=== PATIENT | female | born 1990 | race Two or more races ===

== ENCOUNTER 2019-09-25 13:48 | Emergency (ER) | payer OTHER ==
[2019-09-25 14:00] VITALS: BP 94/54; PULSE 79; TEMP 98.5; BMI 25.4
[2019-09-25] MEDS ORDERED: ACETAMINOPHEN 500 MG TABLET (FP) PO ONE (14:22)
[2019-09-25] MEDS ORDERED: LIDOCAINE VISCOUS 2% ORAL/TOP 20 ML UNIT-DOSE CUP MM ONE (14:22)
[2019-09-25] MEDS ORDERED: MAG HYDROX/AL HYDROX/SIMETH 30 ML UNIT-DOSE CUP PO ONE (14:22)
[2019-09-25 14:24] LABS: HCG,QUALITATIVE URINE Negative
--- NOTE | 2019-09-25 14:29 | PDOC ---
Documentation entered by Ana Bray SCRIBE, acting as scribe for Shari Flynn DO. Shari Flynn DO: This documentation has been prepared by the goldenibalma, Ana Bray SCRIBE, under my direction and personally reviewed by me in its entirety. I confirm that the documentation accurately reflects all work, treatment, procedures, and medical decision making performed by me. History of Present Illness - General Chief Complaint: Pain Stated Complaint: ABDOMINAL PAIN WAS DIAGNOSISED WITH UTI YESTERDA Time Seen by Provider: 09/25/19 13:52 History Source: Patient Exam Limitations: No Limitations - History of Present Illness Initial Comments: 09/25/19 14:20 The patient is a 28-year-old female with no significant past medical history who presents to the emergency department with abdominal pain. The patient presents with right upper quadrant pain radiating to the right shoulder, associated with vomiting and increased belching. The patient reports episodes of nonbloody, nonbilious vomiting and Friday, the last episode was yesterday. The patient reports her last bowel movement was , which was usual for the patient to have a bowel movement every other day. The patient reports she is passing flatulence. The patient reports following up at an Urgent care yesterday for the symptoms, the patients UC was significant for a UTI, the patient was discharged on Bactrim and Pepcid (for abdominal symptoms) and was instructed to follow up at an emergency department if the pain persisted. The patient reports taking 3 doses of the medication. Denies fever or chills. Denies dysuria but reports Urinary hesitancy. Allergies: NKA Social history: No reported use of tobacco. Surgical history: appendectomy. LMP: September 04. Past History - Medical History Allergies/Adverse Reactions: Allergies Allergy/AdvReac Type Severity Reaction Status Date / Time No Known Allergies Allergy Verified 09/25/19 13:51 Home Medications: Ambulatory Orders Famotidine [Pepcid -] 20 mg PO DAILY 09/25/19 Polyethylene Glycol 3350 [Miralax (For Bowel Prep) -] 17 gm PO HS #1 bottle 09/25/19 Sulfamethoxazole/Trimethoprim [Bactrim Ds -] 1 tab PO BID 09/25/19 Asthma: Yes COPD: No - Surgical History Appendectomy: Yes - Reproductive History (#): 0 Para: 0 - Immunization History Immunization Up to Date: No - Psycho-Social/Smoking History Smoking History: Never smoked Have you smoked in the past 12 months: No Information on smoking cessation initiated: No - Substance Abuse Hx (Audit-C & DAST Scrn) How often the patient has a drink containing alcohol: 2-4 times / month Number of drinks the patient has on a typical day: 3 or 4 How often the patient has six or more drinks on one occasion: Never Score: In Men: 4 or > Positive; In Women: 3 or > Positive: 3 Screen Result (Pos requires Nsg. Audit-10AR): Positive In the last yr the pt used illegal drug/Rx for NonMed reason: No Score: Yes response is considered Positive: 0 Screen Result (Positive result requires Nsg. DAST-10): Negative Review of Systems - Review of Systems Able to Perform ROS?: Yes Comments:: 09/25/19 14:35 GENERAL/CONSTITUTIONAL: No fever or chills. No weakness. HEAD, EYES, EARS, NOSE AND THROAT: No change in vision. No ear pain or discharge. No sore throat. GASTROINTESTINAL: +abdominal pain radiating to the right shoulder, vomiting, burping. No diarrhea or constipation. GENITOURINARY: +urinary hesitancy. No dysuria or hematuria. No frequency. CARDIOVASCULAR: No chest pain or shortness of breath. RESPIRATORY: No cough, wheezing, or hemoptysis. MUSCULOSKELETAL: +right shoulder pain. No other joint or muscle swelling or pain. No neck or back pain. SKIN: No rash NEUROLOGIC: No headache, vertigo, loss of consciousness, or change in strength/sensation. ENDOCRINE: No increased thirst. No abnormal weight change. HEMATOLOGIC/LYMPHATIC: No anemia, easy bleeding, or history of blood clots. ALLERGIC/IMMUNOLOGIC: No hives or skin allergy. *Physical Exam - Vital Signs Last Vital Signs Temp Pulse Resp BP Pulse Ox 98.5 F 79 16 94/54 L 100 09/25/19 13:50 09/25/19 13:50 09/25/19 13:50 09/25/19 13:50 09/25/19 13:50 - Physical Exam 09/25/19 14:37 Constitutional: Awake, alert, oriented. No acute distress. Head: Normocephalic. Atraumatic Eyes: PERRL. EOMI. Conjunctivae are not pale. ENT: Mucous membranes are moist and intact. Posterior pharynx without exudate or erythema. Uvula midline. Neck: Supple. Full ROM. No lymphadenopathy. Cardiovascular: Regular rate. Regular rhythm. S1, S2 regular. Pulmonary/Chest: No evidence of respiratory distress. Clear to auscultation bilaterally No wheezing, rales or rhonchi. Abdominal: +epigastric and right upper quadrant tenderness. No rebound, guarding or rigidity. No palpable masses. Good bowel sounds. Back: No CVA tenderness. Musculoskeletal: No edema. No cyanosis. No clubbing. Full range of motion in all extremities. No calf tenderness. Skin: Skin is warm and dry. No petechiae. No purpura. Neurological: Alert and oriented to person, place, and time. Cranial nerves II-XII are grossly intact. Normal speech. Normal gait. Psychiatric: Good eye contact. Normal interaction, affect and behavior. ED Treatment Course - LABORATORY CBC & Chemistry Diagram: 09/25/19 14:30 09/25/19 14:30 Medical Decision Making - Medical Decision Making 09/25/19 14:26 a/p: 28yo female with abd pain assoc with n/v yesterday -states she feels gas pains and hasn't had a bm since -nbnb vomitus yesterday -seen at urgent care and dx with a uti on bactrim and pepcid -states taken 3 doses of abx and pepcid as prescribed. -no dysuria, but urinary hesitancy, no blood -FDLMP was 7/5 -epigastric and RUQ ttp -pain radiates to the R shoulder -will perform POCUS ultrasound -will send labs, repeat ua -will monitor and reassess 09/25/19 15:08 labs reviewed normal wbc hgb stable normal chem ua shows blood pt currently being treated for a uti, discussed possible renal colic, all pain resolved at this time. on the pocus ultrasound R kidney eval and no hydro, also no gallstones, borderline gb wall pt states she feels better and wants to go home discussed follow up with her pmd on friday pt requesting a work note for the weekend will give miralax for constipation and discussed continuing the pepcid pt was rx yesterday stable for dc to home 09/25/19 15:17 repeat abd exam: soft, nt/nd +bs, no ruq ttp, no epigastric ttp Discharge - Discharge Information Problems reviewed: Yes Clinical Impression/Diagnosis: Hematuria, Epigastric pain Condition: Stable Disposition: HOME - Admission No - Additional Discharge Information Prescriptions: Polyethylene Glycol 3350 [Miralax (For Bowel Prep) -] 17 gm PO HS #1 bottle - Follow up/Referral Referrals: Toma Saavedra MD [Nurse Practitioner] - - Patient Discharge Instructions Patient Printed Discharge Instructions: DI for Epigastric Pain, DI for Hematuria Additional Instructions: Please finish your antibiotics as prescribed. Please continue your pepcid as prescribed. Please take the miralax- 1 capful in 8oz water each night before bed. Follow with another glass of water. You should start having regular bowel movements-- if you develop diarrhea stop the miralax or go to every other day dosing. Please also follow up with your PMD on Friday. If the abd pain worsens or you develop acute flank pain return to the ER. You have some blood in your urine - this could be from the UTI, but may also be from a kidney stone. Please have your PMD repeat a urine test at the next visit. - Post Discharge Activity Work/Back to School Note: Back to Work
[2019-09-25] MEDS ORDERED: ACETAMINOPHEN 500 MG TABLET (FP) ONE (14:30)
[2019-09-25] MEDS ORDERED: MAG HYDROX/AL HYDROX/SIMETH 30 ML UNIT-DOSE CUP ONE (14:30)
[2019-09-25] MEDS ORDERED: LIDOCAINE VISCOUS 2% ORAL/TOP 20 ML UNIT-DOSE CUP ONE (14:31)
[2019-09-25 14:33] LABS: EPITHELIAL CELLS MANY /hpf
[2019-09-25 14:52] LABS: HEMATOCRIT 30.4 % (32.4-45.2); HEMOGLOBIN 10.2 GM/dl (10.7-15.3); MCH 25.6 pg (25.7-33.7); MCHC 33.5 g/dl (32.0-36.0); MEAN CELL VOLUME 76.5 fl (80-96); MEAN PLT VOLUME 11.6 fl (7.5-11.1); PLATELET COUNT 202 K/MM3 (134-434); RBC 3.98 M/mm3 (3.60-5.2); RDW 15.7 % (11.6-15.6); WHITE BLOOD COUNT 8.6 K/mm3 (4.0-10.8)
[2019-09-25 14:53] LABS: ALBUMIN 3.9 g/dl (3.4-5.0); BILIRUBIN,TOTAL 0.6 mg/dl (0.2-1); CALCIUM 8.8 mg/dl (8.5-10); CREATININE 0.8 mg/dl (0.55-1.3); TOT PROT 7.1 g/dl (6.4-8.2)
[2019-09-25 15:11] LABS: PLATELET ESTIMATE ADEQUATE
== END 2019-09-25 15:22 | disposition home or self-care (01) ==
LOC: FER 13:48 → SUPCPDRO 13:48 → FER 15:22
DX: R31.9 Hematuria, unspecified (principal); R10.13 Epigastric pain
CPT/HCPCS: 36415; 74019-TC-FY; 76705-TC; 80053; 81003; 81015; 84703; 85025; 87086; 99285-25

== ENCOUNTER 2020-03-25 13:32 | Emergency (ER) | payer OTHER ==
[2020-03-25 14:16] VITALS: BP 113/71; PULSE 75; TEMP 98.2; BMI 21.9
== END 2020-03-25 14:54 | disposition home or self-care (01) ==
LOC: FER 13:32
DX: U07.1 COVID-19 (principal)
CPT/HCPCS: 99283-25; C9803; U0003